=== PATIENT | female | born 1960 | race Two or more races ===

== ENCOUNTER 2021-01-19 06:23 | Day surgery (SDC) | payer OTHER ==
[2021-01-19] MEDS ORDERED: ECOTRIN325 M1 PO (11:03)
[2021-01-19] MEDS ORDERED: PERCOCET 5-3251 EACH PO (11:03)
[2021-01-19] MEDS ORDERED: DUI500 PO (11:03)
== END 2021-01-19 16:15 | disposition home or self-care (01) ==
LOC: CIR.AMB 06:23
PROVIDERS: ATTEND Orthopaedic Surgery
DX: S82.852A Displaced trimalleolar fracture of left lower leg, initial encounter for closed fracture (principal); S93.422A Sprain of deltoid ligament of left ankle, initial encounter; Z20.822 Contact with and (suspected) exposure to COVID-19
CPT/HCPCS: 27814; 20902; 27612; 27695; C1776